=== PATIENT | female | born 1980 | race Caucasian/White ===

== ENCOUNTER → 2024-02-18 16:04 | Outpatient (REF) | payer BC, SELFPAY | LOC: MRI 3T 16:04 | PROVIDERS: ATTENDING PHYSICIAN Specialist; FAMILY PHYSICIAN Family Medicine | DX: T85.41XA Breakdown (mechanical) of breast prosthesis and implant, initial encounter (principal) | CPT/HCPCS: 77047; C8937 ==

== ENCOUNTER → 2025-05-09 17:07 | Outpatient (REF) | payer BC, SELFPAY | LOC: WDC 17:07 | PROVIDERS: ATTENDING PHYSICIAN Advanced Practice Midwife; FAMILY PHYSICIAN Family Medicine | DX: Z12.31 Encounter for screening mammogram for malignant neoplasm of breast (principal) | CPT/HCPCS: 77063; 77067 ==